=== PATIENT | male | born 1940 | race Caucasian/White ===

== ENCOUNTER 2018-07-16 09:00 | Outpatient (RCR) | payer MEDICARE, BC ==
--- NOTE | 2018-06-25 08:05 | NUR ---
06/22/18 Patient in today for Treatment team. Pt presents clean and neat, alert and oriented x 2. Pt is in a bright mood. Pt states the program is helping him learn coping skills such as with his anger. Pt denies any suicidal thoughts at present time. Pt will continue with IOP 2x/week. Pt will follow up in one month. Treatment team concluded.
--- NOTE | 2018-07-16 07:45 | NUR ---
07/12/18 0738 Patients called to state that her cell phone is not working. She gave her home phone number and stated that the driver license agent should call her on her home phone so that she knows he is there to excelsior picker the patient. Will give driver license agent patients home phone number.
[~2018-07-16 09:00] MED LIST: B-COMPL12 PO; BICALUTAMIDE50 MG PO; CARBATROL100 MG PO; DONEPEZIL10 MG PO; DONEPEZIL5 MG PO; FOLITAB PO; HYDROCO/APAP1 TA9 PO; LAMICTAL100 M1 PO; LAMICTAL150 M1 PO; LAMOTRIGINE ODT50 MG PO; LANTUS100 UNIT/M SC; LOSARTAN POT100 MG PO; MECLIZINE25 MG PO; METFORMIN HCL1000 MG PO; NOVOLIN N100 UNIT/1 SC; OMEGA-2 PO; RISPERDAL1 M1 PO; SERTRALINE HCL100 MG PO; SIMVASTATIN40 MG PO; TRAZODONE HCL50 MG PO; TRAZODONE PO; TRAZODONE100 MG PO
[2018-07-23] MEDS ORDERED: NOVOLIN N100 UNIT/2 SC (09:39)
== END 2018-07-19 23:59 | disposition still patient (30) ==
LOC: PATHWAYS 09:00
PROVIDERS: ATTEND Specialist
DX: F31.60 Bipolar disorder, current episode mixed, unspecified (principal); R41.89 Other symptoms and signs involving cognitive functions and awareness; F43.21 Adjustment disorder with depressed mood